=== PATIENT | male | born 1960 | race Caucasian/White ===

== ENCOUNTER 2023-11-22 14:11 | Emergency (ER) | payer MEDICAID ==
[~2023-11-22] VITALS: Ht 165.1 cm; Wt 73.0 kg
[2023-11-22 14:17] VITALS: BP 172/84; PULSE 70; RESP 16; TEMP 97.4; O2SAT 97
== END 2023-11-22 15:05 | disposition home or self-care (01) ==
LOC: ER 15:03
DX: I10 Essential (primary) hypertension (principal); E78.00 Pure hypercholesterolemia, unspecified; Z86.39 Personal history of other endocrine, nutritional and metabolic disease
CPT/HCPCS: 99283